=== PATIENT | female | born 1990 | race Caucasian/White ===

== ENCOUNTER 2017-09-12 19:25 | Emergency (ER) | payer MEDICAID ==
--- NOTE | 2017-09-12 20:20 | EDM.PDOC ---
ED HPI GENERAL MEDICAL PROBLEM - General Chief Complaint: Gastrointestinal Problem Stated Complaint: MED[facility] Time Seen by Provider: 09/12/17 19:45 Source of Information: Reports: Patient, EMS History Limitations: Reports: No Limitations - History of Present Illness INITIAL COMMENTS - FREE TEXT/NARRATIVE: 26-year-old female, history of renal transplant 2 had been her usual state of health until 2-3 days ago she developed a cough. Over the past 24 hours she's had persistent emesis, and several episodes of diarrhea. She's developed a headache and back pain, no dysuria. Her sister had a similar syndrome but is not immunocompromised. She improved. Patient arrived by ambulance because of feeling so poorly. She has not seen any blood in the emesis or diarrhea. She does not think she is spiked significant fevers but she has had chills. Does have a cough but not short of breath. She received 3 doses of IV fentanyl along with 1 dose of IV Zofran in route by EMS, her headache is much improved. She has marked decreased urinary output compared to her baseline. Onset: Gradual (Over the past 3 days) Severity: Moderate Associated Symptoms: Reports: Cough, Headaches, Malaise, Nausea/Vomiting, Weakness - Related Data Allergies Allergy/AdvReac Type Severity Reaction Status Date / Time citalopram Allergy Cannot Verified 09/12/17 20:13 Remember NSAIDS (Non-Steroidal Allergy Renal Verified 09/12/17 20:13 Anti-Inflamma Failure Home Meds: Home Meds Mycophenolate Mofetil [Cellcept] 2 tab PO BID 09/12/17 [History] Ranitidine HCl 1 tab PO DAILY 09/12/17 [History] Tacrolimus [Prograf] 1 tab PO DAILY 09/12/17 [History] Tacrolimus [Prograf] 1 tab PO DAILY 09/12/17 [History] ED ROS GENERAL - Review of Systems Review Of Systems: See Below Constitutional: Reports: Chills, Malaise, Weakness HEENT: Reports: No Symptoms Respiratory: Reports: Cough. Denies: Shortness of Breath Cardiovascular: Denies: Chest Pain GI/Abdominal: Reports: Abdominal Pain (A few mild abdominal cramps), Diarrhea, Nausea, Vomiting : Reports: Other (Decreased urinary output) Musculoskeletal: Reports: Back Pain Neurological: Reports: Headache, Weakness. Denies: Dizziness Psychiatric: Reports: No Symptoms ED EXAM, GENERAL - Physical Exam Exam: See Below Exam Limited By: No Limitations General Appearance: Alert, Moderate Distress (Feels very uncomfortable) Eye Exam: Bilateral Eye: PERRL Throat/Mouth: Normal Inspection Head: Atraumatic Respiratory/Chest: No Respiratory Distress, Lungs Clear Cardiovascular: Regular Rate, Rhythm GI/Abdominal: Normal Bowel Sounds, Other (Uncomfortable to palpation diffusely) Extremities: No: Pedal Edema Neurological: Alert, Oriented, No Motor/Sensory Deficits Psychiatric: Flat Affect Skin Exam: Warm, Dry Course - Vital Signs Last Recorded V/S: Last Vital Signs Temp 97.7 F 09/12/17 20:28 Pulse 67 09/12/17 20:28 Resp 14 09/12/17 20:28 BP 97/57 L 09/12/17 20:28 Pulse Ox 98 09/12/17 20:28 - Orders/Labs/Meds Labs: Laboratory Tests 09/12/17 09/12/17 09/12/17 Range/Units 20:10 20:10 21:04 WBC 15.4 H (4.5-11.0) K/uL RBC 4.62 (3.30-5.50) M/uL Hgb 13.0 (12.0-15.0) g/dL Hct 40.4 (36.0-48.0) % MCV 87 (80-98) fL MCH 28 (27-31) pg MCHC 32 (32-36) % Plt Count 340 (150-400) K/uL Neut % (Auto) 72 H (36-66) % Lymph % (Auto) 23 L (24-44) % [place] % (Auto) 5 (2-6) % Eos % (Auto) 0 L (2-4) % Baso % (Auto) 0 (0-1) % Sodium 140 (140-148) mmol/L Potassium 3.5 L (3.6-5.2) mmol/L Chloride 105 (100-108) mmol/L Carbon Dioxide 27 (21-32) mmol/L Anion Gap 11.5 (5.0-14.0) mmol/L BUN 13 (7-18) mg/dL Creatinine 1.0 (0.6-1.0) mg/dL Est Cr Clr Drug Dosing 61.77 mL/min Estimated GFR (MDRD) > 60 (>60) Glucose 96 (74-106) mg/dL Calcium 8.8 (8.5-10.1) mg/dL Total Bilirubin 0.2 (0.2-1.0) mg/dL AST 18 (15-37) U/L ALT 22 (12-78) U/L Alkaline Phosphatase 68 (46-116) U/L Total Protein 6.3 L (6.4-8.2) g/dL Albumin 3.2 L (3.4-5.0) g/dL Globulin 3.1 (2.3-3.5) g/dL Albumin/Globulin Ratio 1.0 L (1.2-2.2) Amylase 90 (25-115) U/L Lipase 196 (73-393) U/L Urine Color Yellow Urine Appearance Clear Urine pH 8.0 (4.5-8.0) Ur Specific [place] 1.020 (1.008-1.030) Urine Protein Negative (NEGATIVE) mg/dL Urine Glucose (UA) Normal (NEGATIVE) mg/dL Urine Ketones Negative (NEGATIVE) mg/dL Urine Occult Blood Negative (NEGATIVE) Urine Nitrite Negative (NEGATIVE) Urine Bilirubin Negative (NEGATIVE) Urine Urobilinogen Normal (NORMAL) mg/dL Ur Leukocyte Esterase Negative (NEGATIVE) Urine RBC 0-5 (0-5) Urine WBC 0-5 (0-5) Ur Epithelial Cells Few Amorphous Sediment Few Urine Bacteria Rare Urine Mucus Few Meds: Medications Discontinued Medications Generic Name Dose Route Start Last Admin Trade Name Freq PRN Reason Stop Dose Admin Hydromorphone HCl 0.5 mg 09/12/17 21:54 09/12/17 22:00 Dilaudid IVPUSH 09/12/17 21:55 0.5 mg ONETIME ONE Administration Sodium Chloride 1,000 mls @ 1,000 mls/hr 09/12/17 20:45 09/12/17 20:41 Normal Saline IV 1,000 mls/hr ASDIRECTED VERONICA Administration Sodium Chloride 1,000 mls @ 1,000 mls/hr 09/12/17 21:45 09/12/17 21:38 Normal Saline IV 1,000 mls/hr ASDIRECTED VERONICA Administration Metoclopramide HCl 5 mg 09/12/17 21:54 09/12/17 22:00 Reglan IVPUSH 09/12/17 21:55 10 mg ONETIME ONE Administration Ondansetron HCl 4 mg 09/12/17 20:31 09/12/17 20:41 Zofran IVPUSH 09/12/17 20:32 4 mg ONETIME ONE Administration - Re-Assessments/Exams Free Text/Narrative Re-Assessment/Exam: 09/12/17 20:19 Influenza antigens were obtained, as well as a CBC, CMP, and quick catheter UA. Also an amylase and lipase were obtained. 09/12/17 22:24 White count was mildly elevated at 15,000, otherwise her labs look excellent. Hemoglobin, electrolytes, creatinine, GFR are all normal. Quick catheter UA was completely normal. Amylase and lipase were normal. Patient continued to improve with IV hydration, she did need a dose of Reglan and an additional 0.5 mg of Dilaudid for her headache. I just don't have a reason for her to need to be in the hospital, so she was discharged with some when necessary Zofran with a diagnosis of gastroenteritis. Departure - Departure Time of Disposition: 23:41 Disposition: Home, Self-Care 01 Condition: Fair Clinical Impression: Gastroenteritis Headache Qualifiers: Headache type: tension-type Headache chronicity pattern: acute headache Intractability: not intractable Qualified Code(s): G44.209 - Tension-type headache, unspecified, not intractable - Discharge Information Instructions: Viral Gastroenteritis, Adult, [id number], Dehydration, Adult, [id number] Referrals: PCP,None [Primary Care Provider] - Forms: ED Department Discharge Care Plan Goals: Rest tonight, use Zofran for any persistent nausea and increase activity and diet as tolerated. Consider rechecking in 24-48 hours if not improving satisfactorily.
[2017-09-12] MEDS ORDERED: Ondansetron 4 MG/2 ML SDV IVPUSH ONE (20:31)
[2017-09-12] MEDS ORDERED: Sodium Chloride 0.9% 1,000 ML IV SCH ×2 (20:45→21:45)
[2017-09-12] MEDS ORDERED: Metoclopramide 10 MG/2 ML SDV IVPUSH ONE (21:54)
[2017-09-12] MEDS ORDERED: HYDROmorphone 0.5 MG/0.5 ML Syringe IVPUSH ONE (21:54)
== END 2017-09-12 23:41 | disposition home or self-care (01) ==
LOC: JP.ED 19:25
DX: K52.9 Noninfective gastroenteritis and colitis, unspecified (principal); G44.209 Tension-type headache, unspecified, not intractable; Z88.8 Allergy status to other drugs, medicaments and biological substances; Z79.899 Other long term (current) drug therapy
CPT/HCPCS: 36415; 80053; 81001; 82150; 83690; 85025; 87804; 96361; 96374; 96375; 99284; J1170; J2405; J2765; J7040; 99283; J7030

== ENCOUNTER 2019-06-11 09:24 | Emergency (ER) | payer MEDICAID, OTHER ==
--- NOTE | 2019-06-11 10:10 | EDM.PDOC ---
ED HPI GENERAL MEDICAL PROBLEM - General Chief Complaint: ENT Problem Stated Complaint: POSSIBLE SINUS INFECTION Time Seen by Provider: 06/11/19 10:02 Source of Information: Reports: Patient, RN Notes Reviewed History Limitations: Reports: No Limitations - History of Present Illness INITIAL COMMENTS - FREE TEXT/NARRATIVE: 28-year-old female presents to the emergency department today with complaint of sinus pressure, she does have a known history of renal transplant secondary to IgA nephropathy is currently on Prograf and CellCept. She denies any fevers does have sinus pressure that gets worse when she bends over. No nausea vomiting or difficulty breathing Right Eyelid Pain Score (Numeric/FACES): 6 - Related Data Allergies Allergy/AdvReac Type Severity Reaction Status Date / Time citalopram Allergy Cannot Verified 09/12/17 20:13 Remember NSAIDS (Non-Steroidal AdvReac Renal Verified 09/13/17 08:12 Anti-Inflamma Failure Home Meds: Home Meds Mycophenolate Mofetil [Cellcept] 2 tab PO BID 09/12/17 [History] Ranitidine HCl 1 tab PO DAILY 09/12/17 [History] Tacrolimus [Prograf] 1 tab PO DAILY 09/12/17 [History] Tacrolimus [Prograf] 1 tab PO DAILY 09/12/17 [History] Past Medical History Genitourinary History: Reports: Dialysis, Peritoneal ROOFER GYPSUM History: Reports: Endometriosis, Polycystic Ovaries - Past Surgical History GI Surgical History: Reports: Appendectomy, Cholecystectomy Female Surgical History: Reports: Nephrectomy, Other (See Below) Other Female Surgeries/Procedures: transplant Social & Family History - Tobacco Use Smoking Status *Q: Never Smoker - Caffeine Use Caffeine Use: Reports: Soda - Recreational Drug Use Recreational Drug Use: No ED ROS ENT - Review of Systems Review Of Systems: See Below Constitutional: Reports: No Symptoms. Denies: Fever HEENT: Reports: Sinus Problem Respiratory: Reports: No Symptoms Cardiovascular: Reports: No Symptoms GI/Abdominal: Reports: No Symptoms ED EXAM, ENT - Physical Exam Exam: See Below Exam Limited By: No Limitations General Appearance: Alert, WD/WN, No Apparent Distress Eye Exam: Bilateral Eye: Normal Inspection Nose: Normal Inspection, Normal Mucousa, No Blood Mouth/Throat: Normal Inspection, Normal Gums, Normal Lips, Normal Oropharynx, Normal Teeth Head: Normocephalic, Sinus Tenderness (Frontal bilaterally) Neck: Normal Inspection, Supple, Non-Tender, Full Range of Motion Respiratory/Chest: No Respiratory Distress Course - Vital Signs Last Recorded V/S: Last Vital Signs Temp 98.1 F 06/11/19 09:40 Pulse 88 06/11/19 09:40 Resp 16 06/11/19 09:40 BP 109/71 06/11/19 09:40 Pulse Ox 98 06/11/19 09:40 Departure - Departure Time of Disposition: 10:11 Disposition: Home, Self-Care 01 Condition: Fair Clinical Impression: Sinusitis Qualifiers: Sinusitis location: frontal Chronicity: acute Recurrence: non-recurrent Qualified Code(s): J01.10 - Acute frontal sinusitis, unspecified - Discharge Information Instructions: Sinusitis, Adult, [id number] Referrals: PCP,None [Primary Care Provider] - Forms: ED Department Discharge Additional Instructions: Take full course of antibiotics, use Zofran as needed to help control nausea and vomiting symptoms, Please followup with your primary care provider in 3-5 days if not better, please call return to the emergency department with worsening of symptoms. - Assessment/Plan Plan: Assessment Acuity = acute Site and laterality = sinusitis frontal bilaterally comlicated the patient with known history of renal transplant on immunocompromising medications Etiology = probable bacterial cause Manifestations = none] Location of injury = Home Lab values = none] Plan Elected to treat empirically on Augmentin 875 by mouth twice a day 10 days because she has intolerance of this medication Zofran 2 mg to 4 mg by mouth every 8 hours provided for symptomatic relief total #15 follow-up primary care 3 -5 days if not better This note was dictated using [employer] voice recognition software please call with any questions on syntax or grammar.
== END 2019-06-11 10:24 | disposition home or self-care (01) ==
LOC: JP.ED 09:24
DX: J01.10 Acute frontal sinusitis, unspecified (principal); Z88.8 Allergy status to other drugs, medicaments and biological substances; Z79.899 Other long term (current) drug therapy
CPT/HCPCS: 99283

== ENCOUNTER 2020-10-18 22:55 | Emergency (ER) | payer MEDICAID ==
[2020-10-18] MEDS ORDERED: Sodium Chloride 0.9% 10 ML Syringe FLUSH ONE ×2 (23:08→23:45)
[2020-10-18] MEDS ORDERED: Iopamidol 612 MG/ML 100 ML Bottle IV PRN (23:08)
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
[2020-10-18] MEDS ORDERED: Sodium Chloride 0.9% 75 ML IV SCH (23:15)
[2020-10-18] MEDS ORDERED: Sodium Chloride 0.9% 1,000 ML IV SCH (23:15)
[2020-10-18] MEDS ORDERED: Iopamidol 612 MG/ML 500 ML Multipack Bottle IV ONE (23:45)
[2020-10-18] MEDS ORDERED: Sodium Chloride 0.9% 100 ML IV SCH (23:45)
[2020-10-18] MEDS ORDERED: HYDROmorphone 1 MG/ML Syringe IVPUSH ONE (23:47)
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
== END 2020-10-19 03:02 | disposition home or self-care (01) ==
LOC: JP.ED 22:55
DX: S10.93XA Contusion of unspecified part of neck, initial encounter (principal); M25.511 Pain in right shoulder; M25.551 Pain in right hip; M54.5 Low back pain; R51.9 Headache, unspecified; M25.521 Pain in right elbow; R07.9 Chest pain, unspecified; Z88.6 Allergy status to analgesic agent; Z88.8 Allergy status to other drugs, medicaments and biological substances; Y04.0XXA Assault by unarmed brawl or fight, initial encounter; Y92.039 Unspecified place in apartment as the place of occurrence of the external cause
CPT/HCPCS: 36415; 70450; 70491; 71260; 73070; 73502; 80048; 85025; 96374; 99284; J1170; J7030; Q9967